=== PATIENT | male | born 1965 | race African-American/Black ===

== ENCOUNTER 2018-03-10 11:37 | Emergency (ER) | payer MEDICAID ==
[~2018-03-10] VITALS: Ht 175.3 cm; Wt 88.6 kg
[~2018-03-10 11:37] MED LIST: AMOX500C2 PO; ARIP30TA PO; ARIP5TAB13 PO; ARPZ10T PO; BENZ0.5T3 PO; CLOT45CR46 TOP; DIOVAN; HALO5TAB PO; HALO5TAB17 PO; HYDR-700 PO; IBP800T PO; KETO200T3 PO; MINE120C3 TP; MOME15CR TP; MTF500T PO; OMG1KC PO; PRD20T PO; RT-ALBUINH IH; SITA100T PO; SPECTAZOLE TOP; VLS80C PO
--- NOTE | 2018-03-10 11:52 | ED Integumentary General ---
General Stated Complaint: POSS TICK BITE UNDER LEFT ARM Source: patient Exam Limitations: no limitations History of Present Illness Date Seen by Provider: Mar 10, 2018 Time Seen by Provider: 11:48 Initial Comments to ER with concerns of a tick attached to the left axilla that he first noticed this morning. This was a little tender. Timing/Duration: just prior to arrival Severity: mild Associated Symptoms: denies symptoms Allergies and Home Medications Allergies Coded Allergies: NKANo Known Allergies (Verified Allergy, Unknown, 09/25/06) Home Medications Albuterol Sulfate 8.5 Gm Hfa.aer.ad, 2 PUFF IH Q6H PRN for SHORTNESS OF BREATH Prescribed by: CHRISTAL NOGUEIRA on 09/30/15 1658 Aripiprazole 10 Mg Tab, 10 MG PO DAILY, (Reported) TAKES WITH 30MG = 40MG DOSE Haloperidol 5 Mg Tablet, 5 MG PO BID, (Reported) Metformin Hcl 500 Mg Tablet, 1,000 MG PO BID WITH MEALS, (Reported) take 2 (500 mg) tablets twice daily Robards 3 Polyunsat Fatty Acids 1,000 Mg Cap, 1,000 MG PO DAILY, (Reported) Valsartan 80 Mg Tab, 80 MG PO DAILY, (Reported) Patient Home Medication List Home Medication List Reviewed: Yes Constitutional: see HPI EENTM: see HPI Respiratory: no symptoms reported Cardiovascular: no symptoms reported Genitourinary: no symptoms reported Musculoskeletal: no symptoms reported Skin: see HPI Psychiatric/Neurological: No Symptoms Reported Endocrine: No Symptoms Reported Past Xdezdir-Bveuok-Togwav Hx Patient Social History Recent Foreign Travel: No Contact w/Someone Who Travel: No Immunizations Up To Date Tetanus Booster (TDap): Less than 5yrs PED Vaccines UTD: No Date of Pneumonia Vaccine: Aug 20, 2012 Date of Influenza Vaccine: Aug 20, 2013 Seasonal Allergies Seasonal Allergies: No Past Medical History Sleep Apnea Reproductive Disorders: No Sexually Transmitted Disease: No HIV/AIDS: No Diabetes, Non-Insulin dep Loss of Vision: Denies Hearing Impairment: Denies Anxiety, Schizophrenia, Depression Family Medical History Abdominal aortic aneurysm Congestive heart failure G8 SISTER Family history: Cardiovascular disease G8 SISTER Family history: Diabetes mellitus 19 FATHER G8 SISTER Family history: Gastrointestinal disease Family history: Glaucoma G8 SISTER Family history: Hypertension G8 BROTHER Headache G8 BROTHER Hearing loss G8 BROTHER Heart disease G8 SISTER Myocardial infarction 19 FATHER No Family History of: Earle's disease Alcoholism Aphasia Cancer Cancer of colon Cataract Chest pain Congenital heart disease Cystic fibrosis Dementia Dysphagia Family history: Allergy Family history: Alzheimer's disease Family history: Arthritis Family history: Asthma Family history: Breast disease Family history: Coronary thrombosis Family history: Osteoporosis Family history: Thyroid disorder Hereditary disease History of - anemia History of - disorder History of - respiratory disease History of drug abuse Human immunodeficiency virus (HIV) seropositivity Hypercholesterolemia Infertile Kidney disease Malignant neoplasm of lung Parkinson's disease Prostate cancer Psychotic disorder Seizure disorder Stroke Tuberculosis Visual impairment Heart Disease, Diabetes Physical Exam Vital Signs Capillary Refill : General Appearance: WD/WN, no apparent distress HEENT: PERRL/EOMI, normal ENT inspection Neck: non-tender, full range of motion Respiratory: no respiratory distress, no accessory muscle use Gastrointestinal: normal bowel sounds, non tender Neurologic/Psychiatric: alert, normal mood/affect, oriented x 3 Skin: normal color, warm/dry, other (there is a very small pustule to the left axillawhich was opened with a needle, culture collected and sent to lab. No surrounding induration. He does have a bit of reactive lymphadenopathy. This is small enough and I opened it so I will not prescribe antibiotics.) Skin Problem Character: other (pustule) Progress/Results/Core Measures Results/Orders My Orders Orders - BONNY SIFUENTES APRN Wound Culture (03/10/18 11:46) Metoprolol Tartrate (Ir) Tab (Lopressor (03/10/18 12:00) Departure Impression Primary Impression: pustule of left axilla Additional Impression: Hypertension Disposition: 01 HOME, SELF-CARE Condition: Stable Departure-Patient Inst. Decision time for Depature: 11:50 Referrals: THEO DEY DO (PCP/Family) Primary Care Physician Patient Instructions: NO INSTRUCTIONS GIVEN Add. Discharge Instructions: 1. Tylenol and Motrin for pain 2. Return to ER for any concerns 3. Follow-up with Dr. Dr. Dey tomorrow. BONNY SIFUENTES APRN Mar 10, 2018 11:52
[2018-03-10] MEDS ORDERED: meTOprolol TARTRATE 25 MG (LOPRESSOR) TABLET PO ONE (12:00)
[2018-03-10 12:12] VITALS: BP 158/121
== END 2018-03-10 12:12 | disposition other institution (70) ==
LOC: EDUNIT# 11:37 → ER 11:39
DX: L08.9 Local infection of the skin and subcutaneous tissue, unspecified (principal); I10 Essential (primary) hypertension; G47.30 Sleep apnea, unspecified; F32.9 Major depressive disorder, single episode, unspecified; F20.9 Schizophrenia, unspecified; F41.9 Anxiety disorder, unspecified; E11.9 Type 2 diabetes mellitus without complications; Z82.49 Family history of ischemic heart disease and other diseases of the circulatory system; Z79.84 Long term (current) use of oral hypoglycemic drugs; Z79.51 Long term (current) use of inhaled steroids
CPT/HCPCS: 87070; 87205; 99283

== ENCOUNTER 2019-07-10 12:44 | Emergency (ER) | payer MEDICAID ==
[~2019-07-10] VITALS: Ht 175.3 cm; Wt 91.4 kg
--- NOTE | 2019-07-10 13:25 | NUR ---
Report given to ILYA Gomez to assume care of pt @ this time.
[2019-07-10] MEDS ORDERED: TETANUS,DIPTH,PERTUSS P/F (BOOSTRIX) 0.5 ML VIAL IM ONE (13:30)
--- NOTE | 2019-07-10 13:39 | ED General ---
General Chief Complaint: General Problems/Pain Stated Complaint: THROAT PAIN Nursing Triage Note: Pt amb to triage with c/o throat discomfort and lower extremity discomfort for >1 month. Pt reports every morning he "spits out blood." When asked to describe pt reports "its red and small." Pt reports voice hoarseness. Pt reports discomfort to bilat lower extremities reporting "they feel stiff. Pt denies numbness or tingling to extremities. No edema noted to bilat extremity. Nursing Sepsis Screen: No Definite Risk History of Present Illness Date Seen by Provider: Jul 10, 2019 Time Seen by Provider: 13:35 Initial Comments This 53-year-old black male presents with a complaint of sore throat and hemoptysis for the last several months. The patient denies respiratory distress associated hematemesis easy bruising or other history of bleeding. The patient is concerned that his thyroid is not functioning correctly. Patient is also very concerned that he receive a tetanus shot. States it has been more than 10 years since he has had a tetanus immunization. Patient is complaining of numbness and stiffness in the toes of both feet. The patient is a diabetic. Allergies and Home Medications Allergies Coded Allergies: NKANo Known Allergies (Verified Allergy, Unknown, 09/25/06) Home Medications Albuterol Sulfate 8.5 Gm Hfa.aer.ad, 2 PUFF IH Q6H PRN for SHORTNESS OF BREATH Prescribed by: CHRISTAL NOGUEIRA on 09/30/15 1658 Aripiprazole 10 Mg Tab, 10 MG PO DAILY, (Reported) TAKES WITH 30MG = 40MG DOSE Haloperidol 5 Mg Tablet, 5 MG PO BID, (Reported) Metformin Hcl 500 Mg Tablet, 1,000 MG PO BID WITH MEALS, (Reported) take 2 (500 mg) tablets twice daily Emmett 3 Polyunsat Fatty Acids 1,000 Mg Cap, 1,000 MG PO DAILY, (Reported) Valsartan 80 Mg Tab, 80 MG PO DAILY, (Reported) Patient Home Medication List Home Medication List Reviewed: Yes Review of Systems Review of Systems Constitutional: No chills EENTM: hoarseness, throat pain; No hearing loss Respiratory: No cough Cardiovascular: No chest pain, No palpitations Gastrointestinal: No abdominal pain, No melena, No nausea, No vomiting Genitourinary: No dysuria, No frequency Musculoskeletal: No back pain Skin: No change in color, No rash Psychiatric/Neurological: No Symptoms Reported Hematologic/Lymphatic: No Symptoms Reported Immunological/Allergic: no symptoms reported Past Fjxtijn-Hrmsjb-Diauhl Hx Past Med/Social Hx: Reviewed Nursing Past Med/Soc Hx Patient Social History Alcohol Use: Denies Use Recreational Drug Use: Yes (PT DENIES,) Smoking Status: Former Smoker 2nd Hand Smoke Exposure: No Recent Foreign Travel: No Contact w/Someone Who Travel: No Recent Infectious Disease Expo: No Recent Hopitalizations: Yes Immunizations Up To Date Tetanus Booster (TDap): Less than 5yrs PED Vaccines UTD: No Date of Pneumonia Vaccine: Aug 20, 2012 Date of Influenza Vaccine: Aug 20, 2013 Seasonal Allergies Seasonal Allergies: No Past Medical History Surgeries: Yes ( LEFT HERNIA REPAIR ) Respiratory: Yes Sleep Apnea Cardiac: Yes (HEART CATH) Neurological: Yes Reproductive Disorders: No Sexually Transmitted Disease: No HIV/AIDS: No Gastrointestinal: No Musculoskeletal: Yes (BROKE FINGER YEARS AGO) Endocrine: Yes Diabetes, Non-Insulin dep Loss of Vision: Denies Hearing Impairment: Denies Cancer: No Psychosocial: Yes Anxiety, Schizophrenia, Depression Integumentary: No Blood Disorders: No Family Medical History Abdominal aortic aneurysm Congestive heart failure G8 SISTER Family history: Cardiovascular disease G8 SISTER Family history: Diabetes mellitus 19 FATHER G8 SISTER Family history: Gastrointestinal disease Family history: Glaucoma G8 SISTER Family history: Hypertension G8 BROTHER Headache G8 BROTHER Hearing loss G8 BROTHER Heart disease G8 SISTER Myocardial infarction 19 FATHER No Family History of: [place]wood's disease Alcoholism Aphasia Cancer Cancer of colon Cataract Chest pain Congenital heart disease Cystic fibrosis Dementia Dysphagia Family history: Allergy Family history: Alzheimer's disease Family history: Arthritis Family history: Asthma Family history: Breast disease Family history: Coronary thrombosis Family history: Osteoporosis Family history: Thyroid disorder Hereditary disease History of - anemia History of - disorder History of - respiratory disease History of drug abuse Human immunodeficiency virus (HIV) seropositivity Hypercholesterolemia Infertile Kidney disease Malignant neoplasm of lung Parkinson's disease Prostate cancer Psychotic disorder Seizure disorder Stroke Tuberculosis Visual impairment Heart Disease, Diabetes Physical Exam Vital Signs Vital Signs - First Documented 07/10/19 12:51 Temp 37.0 Pulse 100 Resp 16 B/P (MAP) 198/101 (133) Pulse Ox 99 O2 Delivery Room Air Capillary Refill : Less Than 3 Seconds Height, Weight, BMI Height: 5'9" Weight: 195lbs. 7.0oz. [id number]; 29.00 BMI Method:Stated General Appearance: WD/WN, Anxious Eyes: Bilateral Eye Normal Inspection HEENT: Normal ENT Inspection Neck: Normal Inspection Respiratory: Lungs Clear, Normal Breath Sounds Cardiovascular: Regular Rate, Rhythm, No Murmur Gastrointestinal: Normal Bowel Sounds, Non Tender, Soft Back: Normal Inspection Extremity: Normal Capillary Refill, Normal Inspection Neurologic/Psychiatric: Oriented x3, No Motor/Sensory Deficits, Other (although I suspect this patient is having early diabetic neuropathy in his feet I found no gross findings on exam to support this.) Skin: Normal Color, Warm/Dry Progress/Results/Core Measures Suspected Sepsis Recent Fever Within 48 Hours: No Infection Criteria Present: None New/Unexplained Altered Menta: No Sepsis Screen: No Definite Risk SIRS Temperature: Pulse: 100 Respiratory Rate: 16 Blood Pressure 198 /101 Mean: 133 Laboratory Tests 07/10/19 13:50: Creatinine 1.24 Results/Orders Lab Results Laboratory Tests Test 07/10/19 13:50 Range/Units Sodium Level 136 135-145 MMOL/L Potassium Level 4.1 3.6-5.0 MMOL/L Chloride Level 102 98-107 MMOL/L Carbon Dioxide Level 27 21-32 MMOL/L Anion Gap 7 5-14 MMOL/L Blood Urea Nitrogen 8 7-18 MG/DL Creatinine 1.24 0.60-1.30 MG/DL Estimat Glomerular Filtration Rate > 60 BUN/Creatinine Ratio 6 Glucose Level 259 H 70-105 MG/DL Calcium Level 9.9 8.5-10.1 MG/DL Thyroid Stimulating Hormone (TSH) 1.62 0.35-4.94 UIU/ML My Orders Orders - STEPHANIE GARRIDO MD Hemoglobin A1c (07/10/19 13:26) Ct Neck (Soft Tissue) W (07/10/19 13:26) Thyroid Stimulating Hormone (07/10/19 13:26) Thyroxine T4 (07/10/19 13:26) Dipht,Pertuss(Acell),Tet Adult (Boostrix (07/10/19 13:30) Basic Metabolic Panel (07/10/19 14:30) Iohexol Injection (Omnipaque 350 Mg/Ml 1 (07/10/19 15:15) Received Contrast (Hold Metformin- Contr (07/10/19 15:15) Sodium Chloride Flush (Catheter Flush Sy (07/10/19 15:15) Ns (Ivpb) (Sodium Chloride 0.9% Ivpb Bag (07/10/19 15:15) Medications Given in ED Current Medications Medications Dose Ordered Sig/Luisa Route Start Time Stop Time Status Last Admin Dose Admin Diphtheria/ Tetanus/Acell Pertussis 0.5 ml ONCE ONCE IM 07/10/19 13:30 07/10/19 13:31 DC 07/10/19 13:52 0.5 ML Iohexol 75 ml ONCE ONCE IV 07/10/19 15:15 07/10/19 15:22 DC 07/10/19 15:28 75 ML Sodium Chloride 10 ml NEEDED PRN IV 07/10/19 15:15 07/10/19 15:28 10 ML Sodium Chloride 100 ml ONCE ONCE IV 07/10/19 15:15 07/10/19 15:22 DC 07/10/19 15:27 80 ML Vital Signs/I&O 07/10/19 12:51 Temp 37.0 Pulse 100 Resp 16 B/P (MAP) 198/101 (133) Pulse Ox 99 O2 Delivery Room Air Capillary Refill : Less Than 3 Seconds Blood Pressure Mean: 133 Progress Note : Time: 15:45 Progress Note The patient's CT of the neck was essentially unremarkable. I reassured the patient and asked that he follow-up closely with his primary care provider. Next I advised the patient return to the emergency department if he further problems or questions. Departure Impression Primary Impression: Throat discomfort Disposition: 01 HOME, SELF-CARE Condition: Unchanged Departure-Patient Inst. Decision time for Depature: 15:46 Referrals: THEO DEY DO (PCP/Family) Primary Care Physician Patient Instructions: Sore Throat in Adults Add. Discharge Instructions: Follow-up closely with Dr. Dey. Return if any problems or questions. All discharge instructions reviewed with patient and/or family. Voiced understanding. STEPHANIE GARRIDO MD Jul 10, 2019 13:39
[2019-07-10 14:58] LABS: BUN/CREATININE RATIO 6; CALCIUM 9.9 MG/DL (8.5-10.1); CARBON DIOXIDE 27 MMOL/L (21-32); CHLORIDE 102 MMOL/L (98-107); CREATININE SERUM 1.24 MG/DL (0.60-1.30); GFR ESTIMATED > 60; GLUCOSE 259 MG/DL (70-105); POTASSIUM 4.1 MMOL/L (3.6-5.0); SODIUM 136 MMOL/L (135-145)
[2019-07-10] MEDS ORDERED: HOLD METFORMIN - RECEIVED CONTRAST 20 ML VIAL IV SCH (15:15)
[2019-07-10] MEDS ORDERED: NS 100 ML (IVPB) BAG IV ONE (15:15)
[2019-07-10] MEDS ORDERED: IOHEXOL 350 MG/ML 100 ML (OMNIPAQUE 350) VIAL IV ONE (15:15)
[2019-07-10] MEDS: CATHETER FLUSH 10 ML SYR IV PRN ×2 (15:27→15:28)
--- NOTE | 2019-07-10 15:37 | Diagnostic Imaging Report ---
PROCEDURE: CT neck soft tissue with contrast. TECHNIQUE: Multiple contiguous axial images were obtained through the neck after the administration of contrast. Auto Exposure Controls were utilized during the CT exam to meet ALARA standards for radiation dose reduction. INDICATION: Throat pain and hoarseness. COMPARISON: No prior studies are available for comparison. FINDINGS: The visualized intracranial structures are unremarkable. The posterior nasopharynx and oropharynx are unremarkable. Parapharyngeal fat planes are preserved. Epiglottis and larynx appear unremarkable. No thyroid mass is detected. Submandibular and parotid glands appear to be symmetric bilaterally. Shotty lymph nodes in submandibular and jugulodigastric regions bilaterally are noted which may be reactive. No fluid collections are seen. Retropharyngeal soft tissues are unremarkable. IMPRESSION: Essentially unremarkable CT soft tissue neck study. No mass or abscess is identified. Dictated by: Dictated on workstation # [id number]
[2019-07-10 16:06] VITALS: BP 198/101
== END 2019-07-10 16:05 | disposition home or self-care (01) ==
LOC: EDUNIT# 12:44 → ER 12:45
DX: R07.0 Pain in throat (principal); E11.9 Type 2 diabetes mellitus without complications; F41.9 Anxiety disorder, unspecified; F32.9 Major depressive disorder, single episode, unspecified; F20.9 Schizophrenia, unspecified; Z79.84 Long term (current) use of oral hypoglycemic drugs; Z87.891 Personal history of nicotine dependence; Z95.9 Presence of cardiac and vascular implant and graft, unspecified; Z82.49 Family history of ischemic heart disease and other diseases of the circulatory system
CPT/HCPCS: 36415; 70491; 80048; 83036; 84436; 84443; 90715